=== PATIENT | female | born 1965 | race Caucasian/White ===

== ENCOUNTER 2020-09-12 08:05 | Day surgery (SDC) | payer OTHER ==
[2020-09-12] MEDS: Ringers Lactate 1,000 ML IV ONE ×2 (08:22→09:30)
[2020-09-12] MEDS ORDERED: Mastisol Adhesive Liq ONE ×2 (08:36→15:24)
[2020-09-12] MEDS ORDERED: NS 0.9% VIAL 30 ML ONE (08:36)
[2020-09-12] MEDS ORDERED: GENTAMICIN SULF 80 MG/2ML INJ ONE (08:36)
[2020-09-12] MEDS ORDERED: LIDOCAINE 1% W/EPI 1:100,000 MDV 20 ML VIAL ONE (08:36)
[2020-09-12] MEDS ORDERED: Ringers Lactate 1,000 ML IV ONE ×2 (08:37→08:54)
[2020-09-12] MEDS ORDERED: BACITRACIN 50000 UNIT VIAL ONE (08:37)
[2020-09-12] MEDS ORDERED: SCOPOLAMINE HYDROBROMIDE PATCH TD ONE (08:54)
[2020-09-12] MEDS ORDERED: CEFAZOLIN/SWI 1gm 0 GM/0 ML SYR ONE (08:55)
[2020-09-12] MEDS ORDERED: propofoL 200 MG/20 ML VIAL IV ONE (09:03)
[2020-09-12] MEDS ORDERED: NS 0.9% VIAL 10 ML ONE (09:04)
[2020-09-12] MEDS ORDERED: LANO/MINERAL OIL/PETRO 3.5 GM ONE (09:04)
[2020-09-12] MEDS ORDERED: VECURONIUM 10 MG/VIAL IV ONE ×2 (09:04→09:09)
[2020-09-12] MEDS ORDERED: dexAMETHasone 10 MG/ML VIAL ONE (09:04)
[2020-09-12] MEDS ORDERED: FENTANYL CITR 250 MCG/5 ML ONE (09:04)
[2020-09-12] MEDS ORDERED: MIDAZOLAM HCL 2 MG/2 ML INJ ONE (09:04)
[2020-09-12] MEDS ORDERED: LIDOCAINE 1% MPF 5 ML VIAL ONE (09:04)
[2020-09-12] MEDS ORDERED: ONDANSETRON 4 MG/2 ML VIAL ONE ×2 (09:04→15:14)
[2020-09-12] MEDS ORDERED: CLINDAMYCIN INJ 300 MG in NA CHLORIDE 0.9% 50 ML IV ONE (09:30)
[2020-09-12] MEDS ORDERED: EPINEPHRINE/PF 1 MG/ML AMP ONE ×2 (09:33→09:35)
[2020-09-12] MEDS ORDERED: NA CHLORIDE 0.9% 1,000 ML ONE ×2 (09:33→09:35)
[2020-09-12] MEDS ORDERED: MORPHINE 10 MG/ML VIAL ONE (15:02)
[2020-09-12] MEDS ORDERED: GLYCOPYRROLATE 0.2 MG/ML SYR ONE (15:10)
[2020-09-12] MEDS ORDERED: KETOROLAC 30 MG/ML INJ ONE (15:10)
[2020-09-12] MEDS ORDERED: NEOSTIGMINE 1 MG/ML -5 ML ONE (15:24)
[2020-09-12] MEDS ORDERED: CODEINE 30MG/APAP 300MG TAB ONE (17:39)
[2020-09-12 18:49] VITALS: TEMP 98.2
[2020-09-12 18:55] VITALS: BP 102/56; O2SAT 99
--- NOTE | 2020-09-14 08:43 | OP ---
Surgeon: Azeem Ames MD Preoperative Diagnosis: Breast enlargement and descent Postoperative Diagnosis: Breast enlargement and descent Procedure Performed: breast lift Anesthesia: General. Procedure In Detail: After satisfactory induction of general anesthesia, the chest was prepped with DuraPrep, and dry sterile drapes applied in the usual manner. A 5 cm template was used on the right and left areolas and transverse and curvilinear incisions were made. Intervening skin was de-epithelialized with dermabrader and EpiCut. The right breast was approached first. Electrocautery was used to dissect down. lap was thinned _, elevated towards the sternum, clavicle, anterior axillary line. Then, an inferior incision was made. Then the patient had tissue excised with electrocautery and scalpel . The cone was formed with 2-0 PDS suture. Straps were elevated at 12 o'clock, 1:30 and 3 o'clock positions on the right breast. The straps were then woven in and out of the pectoralis muscle back to base of cone, tied themselves with 2-0 PDS suture. This was done for 12 o'clock, 1:30 straps. The 3 o'clock strap was sewn over the sternum at 3 o'clock position with 2-0 Ethibond. The identical procedure done on the opposite side. We then returned back to the right side. Dog ears were marked out. The patient was sat up. It was excised and then the wound closed after q 10 SEAN was brought out of axilla. Closure was 3-0 Vicryl, subcu 3-0 PDS running subcuticular from lateral to medial and medial to lateral, tied in the vertical meridian. Left side was done in mirror-image manner. The patient was sat up. Site for new nipple-areolar complex was marked out. The tissue was cored out with 5 cm template and then wound closed with 4-0 PDS running subcuticular then 4-0 PDS interrupted were placed. Attention was then turned to the abdomen and flanks. The patient was re-prepped with DuraPrep. Dry sterile drapes were applied. The incision was made approximately 3 cm cephalad to the anterior iliac spine bilaterally and supraumbilically in the right flank, left flank, right abdomen and left abdomen and then a 5 mm cannula right flank, left flank, left abdomen and right abdomen and midline of the abdomen. was left open . Steri-Strips and abdominal binder placed. The breast was covered with fluffs, Roly wrap. The patient tolerated procedure well and returned to recovery. The patient also had SEAN drains placed prior to closure of the breast and sewn in place with 2-0 silk sutures. ANA/JIN Voice ID: [id number] Report ID: [id number]
== END 2020-09-12 18:35 | disposition home or self-care (01) ==
LOC: OR 08:05
PROVIDERS: ATTEND Specialist
PROC: 0HSV0ZZ Reposition Bilateral Breast, Open Approach (ICD-10-PCS; principal; 2020-09-12 09:00)
PROC: 0J083ZZ Alteration of Abdomen Subcutaneous Tissue and Fascia, Percutaneous Approach (ICD-10-PCS; 2020-09-12 09:00)
DX: N64.81 Ptosis of breast (principal); E65 Localized adiposity; Z20.822 Contact with and (suspected) exposure to COVID-19
CPT/HCPCS: 19316; 15877; U0003; J2704; J1580; J2250; J3010; J1100; J2710; J7120 ×3; J7030 ×2; J2405 ×2; J0171; J0690